=== PATIENT | male | born 1950 | race Caucasian/White ===

== ENCOUNTER 2018-01-24 05:58 | Observation (INO) ==
[2018-01-24] MEDS ORDERED: Metoprolol Tartrate 25 MG Tablet PO ONE (06:35)
[2018-01-24] MEDS ORDERED: Chlorhexidine Gluconate 2% 1 Pack (2 Cloths) TOPICAL ONE (06:35)
[2018-01-24] MEDS ORDERED: Sodium Chlor 0.9% Inj 500 ML IV.SIG SCH (07:00)
[2018-01-24] MEDS ORDERED: Lidocaine 1%/Epinephrine 1:100,000 Inj 50 ML Vial ONE (07:08)
[2018-01-24] MEDS ORDERED: Ampicillin/Sulbactam 3 GM Vial ONE (07:27)
[2018-01-24] MEDS ORDERED: Lidocaine PF 1% Inj 5 ML Syringe INFILTRATN ONE (07:52)
[2018-01-24] MEDS ORDERED: Neostigmine Inj 5 MG/5 ML Syringe IV.PUSH ONE (07:52)
[2018-01-24] MEDS ORDERED: Phenylephrine/NS 1000 MCG/10ML Syringe IV.PUSH ONE (07:52)
[2018-01-24] MEDS ORDERED: Ampicillin/Sulbactam Inj 3 GM in Sodium Chloride 0.9% Inj 100 ML IV.SIG ONE (08:00)
--- NOTE | 2018-01-24 09:09 | MP ---
cc: Dre Roper MD DATE OF OPERATION: 01/24/2018 SURGEON: Dre Roper MD PREOPERATIVE DIAGNOSES: 1. Nasal airway obstruction. 2. Nasal septal deviation. 3. Hypertrophy of inferior turbinates. 4. Obstructive sleep apnea. POSTOPERATIVE DIAGNOSES: 1. Nasal airway obstruction. 2. Nasal septal deviation. 3. Hypertrophy of inferior turbinates. 4. Obstructive sleep apnea. PROCEDURES PERFORMED: 1. Open repair, nasal septal fracture. 2. Bilateral submucosal resection of inferior turbinates. INDICATIONS: Documented in the history and physical. DESCRIPTION OF OPERATION: The patient was taken to OR #2, and placed in the supine position. Following induction of general anesthesia and intubation, the nose was packed bilaterally with cotton pledgets saturated in 0.05% oxymetazoline. The septal mucosa and inferior turbinates were then injected with 8 mL of 1% Xylocaine with epinephrine 1:100,000. He was then prepped and draped for surgery. The packing was removed, and the hemitransfixion incision was made in the left nasal vestibule and through this incision, the septal mucosa was elevated bilaterally as far as the junction of the bony and cartilaginous septum. There was evidence of old septal fracture, and previous attempt at septoplasty surgery with dense sclerosis and fibrous scarring of the mucosa, adherent to the cartilage and bone of the septum and maxillary crest. A cumulative area of 2 x 2.5 cm of the quadrangular cartilage was removed, preserving 1.5 cm dorsal and caudal cartilaginous struts. When this was completed, the mucosa was elevated from the bony septum and the maxillary crest, and these were removed using [place]-Wing forceps, and a 6 mm Teja chisel. Incision was then closed with a running suture of 4-0 chromic and the mucosal layers of septum were approximated to each other with a quilting stitch of 4-0 plain gut. The inferior turbinates were addressed next. They were fractured out medially, and stab incisions were opened along their inferior surfaces. Through these incisions, the submucosal soft tissue was reduced using a curette and preserving the conchal bone. The incisions were then cauterized using the suction Bovie at 35 marinelli, and the remnants of the inferior turbinates were then re-lateralized to the lateral nasal wall. The nose was then packed with Merocel tampons coated in mupirocin ointment, and the procedure was terminated. The patient was reversed from anesthesia and taken to recovery in good condition. There were no complications. ESTIMATED BLOOD LOSS: 60 mL MD AISHA Alcaraz/rh , 08:35 AM , 08:41 AM
[2018-01-24] MEDS ORDERED: fentaNYL Citrate Inj 100 MCG/2 ML Ampul ONE (10:14)
[2018-01-24] MEDS: Ampicillin/Sulbactam Inj 3 GM in Sodium Chloride 0.9% Inj 100 ML IV.SIG SCH ×2 (15:15→23:35)
--- NOTE | 2018-01-24 15:41 | ECG ---
Date Performed: 01/24/2018 Time Performed: 07:23:11 PTAGE: 67 years EKG: SINUS BRADYCARDIA POSSIBLE ANTERIOR MYOCARDIAL INFARCTION ABNORMAL ECG NO PREVIOUS TRACING DOCTOR: Kristin Corea Interpretating Date/Time 01/24/2018 15:38:22
--- NOTE | 2018-01-24 17:53 | P.CON ---
History of Present Illness Service: [facility] Consult date: 01/24/18 Requesting Physician: Dre Roper Reason for Consult: Hypertension management Primary Care Provider: Max Orosco Chief Complaint: Elevated BP History of Present Illness: This is a pleasant 67-year-old male patient with a known medical history of hypertension, hyperlipidemia and CAD who underwent a open repair of nasal septal fracture as well as bilateral submucosal resection of inferior turbinates by Dr. Roper on 01/24/18, [facility] has been consulted for hypertension management. Patient seen and examined, postoperatively, lying in bed with postoperative dressing and face tent in place. Patient states the pain is well controlled. He does have a history of hypertension although has not taken anything for quite some time for this due to lifestyle changes. Patient does take a statin at home. Follows with radiologist, Dr. montero. Underwent a cardiac cath 5 years ago which was reportedly unremarkable per patient report. Patient's EKG sinus bradycardia, no ST changes. Patient's pain is well controlled, is tolerating p.o. intake. Blood pressure with systolic between 150s-180s. Review of Systems All other systems reviewed negative except as stated in HPI [facility] - History History Provided By: Patient - Medical History Medical History: Medical History (Last Reviewed 01/24/18 @ 17:55 by Christie Gutierrez) Former smoker Hyperlipidemia - Surgical History Surgical History: Surgical History (Last Reviewed 01/24/18 @ 17:55 by Christie Gutierrez) History of nasal septoplasty - Family History Family History: Family History (Last Updated 01/24/18 @ 17:55 by Christie Gutierrez) Other Cardiovascular disease - Social History I have reviewed the patient's Social History: Yes - Tobacco History Second Hand Smoke Exposure: No Tobacco Use In Past 30 Days: No Smoking Status: Former smoker Tobacco Type: Cigarettes - Alcohol History How Often Do You Have a Drink Containing Alcohol: Never - Substance Use History Substance History: No History of Abuse - Travel History Recent Travel in the [place] Within the Last 8 Weeks: Yes Recent Travel Out of the Country Within the Last 8 Weeks: No - Immunization History Tetanus Immunization: <5 Years Hx Influenza Vaccine This Season: Yes Medications and Allergies Active Medications: Active Medications Hydrocodone Bitart/Acetaminophen ([place] 5/325) 1 tab PO Q4H PRN PRN Reason: PAIN SCALE 1-10 Last Admin: 01/24/18 17:20 Dose: 1 tab Aspirin (Ecotrin) 81 mg PO DAILY RHONA Atorvastatin Calcium (Lipitor) 20 mg PO HS RHONA Lactated Ringer's (Lr 1000 Ml Inj) 1,000 mls @ 30 mls/hr IV.SIG .Q24H RHONA Stop: 01/25/18 06:44 Last Infusion: 01/24/18 16:50 Dose: Infused Sodium Chloride (Ns Inj) 500 mls @ 30 mls/hr IV.SIG .Q10H RHONA Last Admin: 01/24/18 08:19 Dose: Not Given Ampicillin Sodium/Sulbactam (Sodium 3 gm/ Sodium Chloride) 100 mls @ 200 mls/ hr IV.SIG Q8H RHONA Last Infusion: 01/24/18 15:45 Dose: Infused Lactated Ringer's (Lr 1000 Ml Inj) 1,000 mls @ 80 mls/hr IV.SIG .[id number] RHONA Last Admin: 01/24/18 09:48 Dose: 80 mls/hr Ondansetron HCl (Zofran Inj) 4 mg IV.PUSH Q6H PRN PRN Reason: NAUSEA OR VOMITING Zolpidem Tartrate (Ambien) 10 mg PO HS PRN PRN Reason: INSOMNIA Allergies Allergy/AdvReac Type Severity Reaction Status Date / Time No Known Allergies Allergy Verified 01/24/18 06:46 Home Medications Medication Instructions Recorded Confirmed Type aspirin 81 mg PO DAILY 01/17/18 01/24/18 History rosuvastatin 10 mg PO DAILY 01/17/18 01/24/18 History zolpidem [Ambien] 1 tab PO HS 01/17/18 01/24/18 History Physical Exam Vital signs: Vital Signs 01/24/18 07:10 01/24/18 08:43 01/24/18 08:47 Temperature 97.8 F 97.6 F Pulse Rate 59 L 73 61 Respiratory Rate 16 14 14 Blood Pressure 170/91 H 156/73 H 146/80 H Pulse Oximetry 100 93 L 01/24/18 09:10 01/24/18 09:28 01/24/18 12:00 Temperature 96.4 F L Pulse Rate 56 L 59 L 62 Respiratory Rate 16 16 17 Blood Pressure 164/87 H 163/82 H 182/88 H Pulse Oximetry 99 99 94 L 01/24/18 13:59 01/24/18 15:38 01/24/18 17:14 Temperature 96.6 F L Pulse Rate 82 Respiratory Rate 17 19 Blood Pressure 181/97 H Pulse Oximetry 96 97 Intake & Output 01/23/18 01/24/18 01/24/18 18:59 06:59 18:59 Intake Total 1650 / 1650 Output Total 120 / 120 Balance 1530 / 1530 Weight 84.822 kg Intake: IV 850 / 850 Unasyn Inj 3 GM In NS Inj 100 100 / 100 ML @ 200 mls/hr IV.SIG Q8H RHONA Rx#:[id number] LR 1000 mL Inj 1,000 ML @ 30 750 / 750 mls/hr IV.SIG .Q24H RHONA Rx#: [id number] Anesthesia Amount 800 / 800 Output: Estimated Blood Loss 120 / 120 Other: Date of Last Bowel Movement 01/23/18 Weight On Admission 84.822 kg Narrative: GENERAL: Well-developed, well-nourished patient in [facility]. SKIN: Warm and dry. No rash. HEAD: Normocephalic. Atraumatic. EYES: Pupils equal and round. No scleral icterus. No injection or drainage. ENT: Postoperative dressing in place, fixed in place. No significant bleeding. Pain controlled. NECK: Supple. Trachea midline. CARDIOVASCULAR: Regular rate and rhythm. S1, S2 noted. No murmur appreciated. RESPIRATORY: No accessory muscle use. Clear to auscultation. Breath sounds equal bilaterally. GASTROINTESTINAL: Abdomen soft, non-tender, nondistended. Normoactive bowel sounds x4. MUSCULOSKELETAL: No obvious deformities. Extremities without clubbing, cyanosis , or edema. NEUROLOGICAL: Awake and alert. No obvious cranial nerve deficits. Motor grossly within normal limits. 5/5 muscle strength in bilateral upper and lower extremities. Normal speech. PSYCHIATRIC: Appropriate mood and affect; insight and judgment normal. Assessment and Plan - Assessment (1) Hypertension Code(s): I10 - Essential (primary) hypertension Status: Acute (2) Hyperlipidemia Code(s): E78.5 - Hyperlipidemia, unspecified Status: Acute (3) Nasal septal deviation Code(s): J34.2 - Deviated nasal septum Status: Acute (4) Refractory obstruction of nasal airway Code(s): J34.89 - Other specified disorders of nose and nasal sinuses Status: Acute - Plan This is a 67-year-old male patient with: Status post open repair of nasal septal fracture and bilateral submucosal resection of inferior turbinates -Management per ENT. -Pain control, [place] as needed. -Continue Unasyn. Hypertension, uncontrolled suspect secondary to postoperative pain and fluid resuscitation -Patient does not take any home antihypertensives, well controlled with lifestyle. -BP trends with systolic in the 150's-180's. -Will start on Lisinopril scheduled. Clonidine as needed. -Check BMP and CBC in am for baseline renal function. -Continue to monitor trends. -EKG reviewed showing sinus bradycardia, no ST changes. Hyperlipidemia, chronic -Continue home statin. DVT Prophylaxis: SCDs, chemical prophylaxis per ENT. Thank you for this consult, we will follow with you.
[2018-01-24] MEDS: Lisinopril 5 MG Tablet PO SCH (22:31)
[2018-01-25 06:14] LABS: Baso % (Auto) 0.1 % (0.0-2.0); Eos % (Auto) 0.1 % (0.0-4.0); Hematocrit 45.4 % (39.0-51.0); Lymph # (Auto) 1.3 th/mm3 (1.0-4.8); Lymph % (Auto) 14.8 % (9.0-44.0); Mean Corpuscular HGB Conc 33.1 % (32.0-36.0); Mean Corpuscular Volume 90.6 fL (80.0-100.0); Mean Platelet Volume 9.2 fL (7.0-11.0); Mono # (Auto) 0.6 th/mm3 (0.0-0.9); Neut # (Auto) 7.1 th/mm3 (1.8-7.7); Platelet Count 165 th/mm3 (150-450); Red Blood Count 5.01 mil/mm3 (4.50-5.90); Red Cell Distribution Width 12.6 % (11.6-17.2)
[2018-01-25 06:16] LABS: Chloride 107 meq/L (98-107); Potassium 3.8 meq/L (3.5-5.1); Sodium 142 meq/L (136-145)
[2018-01-25 06:19] LABS: Glucose,Random 124 mg/dL (74-106)
[2018-01-25 06:20] LABS: Anion Gap 9 meq/L (5-15); Blood Urea Nitrogen 10 mg/dL (7-18); Calcium 8.4 mg/dL (8.5-10.1)
[2018-01-25 06:22] LABS: Glomerular Filtration Rate Greater Than 89 mL/min (>89)
[2018-01-25] MEDS: Lisinopril 5 MG Tablet PO SCH (07:35)
[2018-01-25 07:53] VITALS: O2SAT 95
[2018-01-25 07:55] VITALS: BP 162/95; PULSE 66; RESP 18; TEMP 96.3
[2018-01-25] MEDS: Ampicillin/Sulbactam Inj 3 GM in Sodium Chloride 0.9% Inj 100 ML IV.SIG SCH (07:56)
== END 2018-01-25 08:22 | disposition home or self-care (01) ==
LOC: PH3 05:58 → PHSDC 05:58
PROVIDERS: ADMIT Otolaryngology; ATTEND Otolaryngology